=== PATIENT | male | born 1960 | race Caucasian/White ===

== ENCOUNTER 2024-09-07 06:53 | Day surgery (SDC) | payer OTHER, SELFPAY ==
[2024-09-02 11:11] LABS: Hematocrit 45.8 % (39.0-52.0); Hemoglobin 15.1 g/dL (13.0-18.0); Mean Corpuscular Hgb 31.5 pg (27.0-31.0); Mean Corpuscular Volume 95.4 fL (80.0-94.0); Mean Platelet Volume 9.1 fL (7.4-10.4); Platelet Count 261 10^3/uL (130-400); Red Cell Dist. Width 12.1 % (11.5-14.5); White Blood Cell Count 5.8 10^3/uL (4.8-10.8)
[2024-09-02 11:56] LABS: Blood Urea Nitrogen 13 mg/dl (9-20); Calcium 9.5 mg/dl (8.4-10.2); Carbon Dioxide 26 mmol/L (22-30); Chloride 100 mmol/L (98-107); Glucose 90 mg/dl (70-99); Potassium 4.8 mmol/L (3.5-5.1); Sodium 139 mmol/L (135-145); eGFR > 60.00
[2024-09-02 13:40] VITALS: BMI 24.9
[2024-09-07] VITALS (11 sets, daily range): BP systolic 102–157; BP diastolic 59–96; BMI 24.9
[2024-09-07] MEDS: TYLENOL 1000 MG PO (10:08)
[2024-09-07] MEDS: NORMOSOL-R/PLASMALYTE-A 1000 IV (10:08)
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
--- NOTE | 2024-09-07 11:32 | W.SUR.PREOP ---
Pre-Operative Surgical Note
-
I have examined this patient prior to the performance of the scheduled procedure.
The patient's condition is unchanged from the time of the current History and
Physical and the patient is able to undergo the scheduled procedure.
--- NOTE | 2024-09-07 13:58 | W.IMMPOSTOP ---
Addendum entered and electronically signed by Horacio Hodges MD 09/09/24 15:18:
[id number]
Original Note:
Surgical Immed Post Op Note
-
Primary Surgeon: Horacio Hodges MD
Assisting Surgeon: Mehreen Olsen PA-C
Pre-op Diagnosis: Right inguinal hernia
Post-op Diagnosis: Right inguinal hernia, indirect
Procedure Performed: Robotic assisted laparoscopic SRIKANTH repair right inguinal hernia with mesh; 3D max extra large mid weight
Anesthesia Type: GETA +0.25% Marcaine with epinephrine
Specimen / Cultures: None
Estimated Blood Loss: 6 mL
Complications: None immediate
Operative Findings: Right indirect inguinal hernia with extension into the scrotal region. No adhesions. Entire hernia sac reduced. Defect 3 to 4 fingerbreadths. Direct and femoral space normal. 3D max extra-large mid weight mesh repair secured
to Woody's ligament with 2-0 Vicryl x 2. Peritoneal flap closed with 2-0 Monocryl STRATAFIX. Previous left inguinal herniorrhaphy intact. No adhesions in left inguinal region. No additional incidental findings.
The assistance of Mehreen Olsen PA-C was required due to the complexity of the procedure. During the procedure Mehreen Olsen PA-C assisted with port placement, robotic instrumentation and suture material exchanges, and closure of the surgical incision
sites. I was present for the entirety of the operative procedure.
[2024-09-07] MEDS: DILAUDID 0.25 MG IV (14:49)
[2024-09-07] MEDS: TYLENOL 650 MG PO (15:58)
== END 2024-09-07 16:29 | disposition home or self-care (01) ==
LOC: SDS 06:53
PROVIDERS: ATTENDING PHYSICIAN Surgery; FAMILY PHYSICIAN Family Medicine
DX: K40.90 Unilateral inguinal hernia, without obstruction or gangrene, not specified as recurrent (principal)
CPT/HCPCS: 49650; 36415; 80048; 85027; C1781

== ENCOUNTER → 2025-01-19 13:37 | Outpatient (REF) | payer OTHER, SELFPAY ==
[2025-01-19 15:12] LABS: Blood Urea Nitrogen 13 mg/dl (9-20); Calcium 10.2 mg/dl (8.4-10.2); Carbon Dioxide 27 mmol/L (22-30); Chloride 105 mmol/L (98-107); Glucose 99 mg/dl (70-99); Potassium 4.9 mmol/L (3.5-5.1); Sodium 140 mmol/L (135-145); eGFR > 60.00
== END ==
LOC: REG 13:37
PROVIDERS: ATTENDING PHYSICIAN Internal Medicine; FAMILY PHYSICIAN Family Medicine
DX: I25.10 Atherosclerotic heart disease of native coronary artery without angina pectoris (principal); I10 Essential (primary) hypertension; E78.00 Pure hypercholesterolemia, unspecified
CPT/HCPCS: 36415; 80048

== ENCOUNTER → 2025-01-20 11:17 | Outpatient (REF) | payer OTHER, SELFPAY | LOC: RAD 11:17 | PROVIDERS: ATTENDING PHYSICIAN Internal Medicine; FAMILY PHYSICIAN Family Medicine | DX: J92.9 Pleural plaque without asbestos (principal); R93.89 Abnormal findings on diagnostic imaging of other specified body structures | CPT/HCPCS: 71270; Q9967 ==

== ENCOUNTER → 2025-07-13 10:43 | Outpatient (REF) | payer OTHER, SELFPAY | LOC: HWRAD 10:43 | PROVIDERS: ATTENDING PHYSICIAN Internal Medicine; FAMILY PHYSICIAN Family Medicine | DX: R91.8 Other nonspecific abnormal finding of lung field (principal) | CPT/HCPCS: 71250 ==